=== PATIENT | male | born 1985 | race Hispanic/Latino ===

== ENCOUNTER 2017-06-08 12:03 | Emergency (ER) | payer BC ==
[2017-06-08] MEDS ORDERED: Adacel (T-DAP) 0.5 ML VIAL ONE (12:48)
[2017-06-08] MEDS ORDERED: Lidocaine 1% (PF) 30 ML VIAL ONE (13:12)
[2017-06-08] MEDS ORDERED: Lidocaine 1% w/Epinephrine 1:200K 30 ML VIAL ONE (13:13)
== END 2017-06-08 14:33 | disposition home or self-care (01) ==
LOC: ERS 12:03
DX: S61.411A Laceration without foreign body of right hand, initial encounter (principal); I10 Essential (primary) hypertension; Z23 Encounter for immunization; W22.03XA Walked into furniture, initial encounter
CPT/HCPCS: 12002; 90471; 90715; J2001

== ENCOUNTER 2017-06-14 10:55 | Emergency (ER) | payer BC | END 2017-06-14 12:03 | disposition home or self-care (01) | LOC: ERS 10:55 | DX: S61.411D Laceration without foreign body of right hand, subsequent encounter (principal); I10 Essential (primary) hypertension | CPT/HCPCS: 99282 ==